=== PATIENT | male | born 1995 | race Caucasian/White ===

== ENCOUNTER 2024-01-10 12:54 | Emergency (ER) | payer SELFPAY ==
[~2024-01-10] VITALS: Ht 172.7 cm; Wt 72.6 kg
[2024-01-10 13:14] VITALS: BP_SYST 135; PULSE 99; RESP 18; TEMP 98.2; O2SAT 97
[2024-01-10 14:33] VITALS: BP_SYST 135; PULSE 99; RESP 18; TEMP 98.2; O2SAT 97
== END 2024-01-10 14:23 ==
LOC: SED 12:54
DX: S60.221A Contusion of right hand, initial encounter (principal); Y04.0XXA Assault by unarmed brawl or fight, initial encounter; Y93.89 Activity, other specified; Y92.89 Other specified places as the place of occurrence of the external cause; Y99.8 Other external cause status
CPT/HCPCS: 99283